=== PATIENT | male | born 1950 | race African-American/Black ===

== ENCOUNTER 2016-07-16 23:58 | Emergency (ER) | payer BC ==
[~2016-07-16 23:58] MED LIST: ADVIL PO; FLOMAX4 PO; MEVACOR40 MG PO; PRILO PO; PRIN20 PO
== END 2016-07-17 01:43 | disposition home or self-care (01) ==
LOC: ER 23:58
DX: H16.133 Photokeratitis, bilateral (principal); I10 Essential (primary) hypertension; Z79.899 Other long term (current) drug therapy
CPT/HCPCS: 99283; A9270-GY